=== PATIENT | female | born 1990 | race American Indian/Alaskan Native ===

== ENCOUNTER 2018-01-22 12:43 | Emergency (ER) | payer SELFPAY ==
[2018-01-22 14:43] LABS: Bilirubin,Urine NEG (Negative); Blood,Urine NEG (Negative); Color,Urine Yellow (Yellow); Mucus,Urine 3+ /HPF
[2018-01-22 14:44] LABS: HCG Qualitative,Urine Negative (Negative)
--- NOTE | 2018-01-22 17:32 | Emergency Department Report ---
ED Female HPI - General Chief complaint: Urogenital-Female Stated complaint: DISCHARGE Time Seen by Provider: 01/22/18 15:52 Source: patient Mode of arrival: Ambulatory Limitations: No Limitations - History of Present Illness Initial comments: 27-year-old female with no significant past medical history presents to the hospital complaining of white vaginal discharge with odor times one day. No pain reported. Patient denies fever or dysuria. Patient is sexually active with one partner and does not use condoms. Patient has had bacterial vaginitis in the past and concerned about repeat infection - Related Data Previous Rx's Medication Instructions Recorded Last Taken Type metroNIDAZOLE [Flagyl] 500 mg PO Q12HR #14 tab 01/22/18 Unknown Rx Allergies Allergy/AdvReac Type Severity Reaction Status Date / Time No Known Allergies Allergy Unverified 01/22/18 13:36 ED Review of Systems ROS: Stated complaint: DISCHARGE Other details as noted in HPI Comment: All other systems reviewed and negative ED Past Medical Hx - Past Medical History Previous Medical History?: No - Surgical History Past Surgical History?: No - Social History Smoking Status: Never Smoker Substance Use Type: None - Medications Home Medications: Home Medications Medication Instructions Recorded Confirmed Last Taken Type metroNIDAZOLE [Flagyl] 500 mg PO Q12HR #14 tab 01/22/18 Unknown Rx ED Physical Exam - General Limitations: No Limitations - Other Other exam information: General: No limitations, alert no acute distress Head exam: Atraumatic, normocephalic Eyes exam: Normal appearance ENT: Moist mucous membrane, normal oropharynx Neck exam: Normal inspection, full range of motion, no meningismus nontender Respiratory exam: Clear to auscultation bilateral, no wheezes, rales, crackles Cardiovascular: Normal rate and rhythm, normal heart sounds Abdomen: Soft, nondistended, and nontender, with normal bowel sounds, no rebound, or guarding : Mild white vaginal odor, no CMT or adnexal tenderness. Extremity: Full range of motion normal inspection no deformity Back: Normal Inspection, full range of motion, no tenderness Neurologic: Alert, oriented x3, cranial nerves intact, no motor or sensory deficit Psychiatric: normal affect, normal mood Skin: Warm, dry, intact ED Course Vital Signs 01/22/18 13:32 Temperature 98.7 F Pulse Rate 74 Respiratory 16 Rate Blood Pressure 115/74 O2 Sat by Pulse 98 Oximetry ED Medical Decision Making - Lab Data Lab Results 01/22/18 Range/Units 14:30 Urine Color Yellow (Yellow) Urine Turbidity Clear (Clear) Urine pH 5.0 (5.0-7.0) Ur Specific [place] 1.032 H (1.003-1.030) Urine Protein 30 mg/dl (Negative) mg/dL Urine Glucose (UA) Neg (Negative) mg/dL Urine Ketones 20 (Negative) mg/dL Urine Blood Neg (Negative) Urine Nitrite Neg (Negative) Urine Bilirubin Neg (Negative) Urine Urobilinogen 2.0 (<2.0) mg/dL Ur Leukocyte Esterase Tr (Negative) Urine WBC (Auto) 3.0 (0.0-6.0) /HPF Urine RBC (Auto) 3.0 (0.0-6.0) /HPF U Epithel Cells (Auto) 14.0 H (0-13.0) /HPF Urine Mucus 3+ /HPF Urine HCG, Qual Negative (Negative) - Medical Decision Making Vaginitis WEt prep negative exception of a few PMNs does not point to any specific infection GC and chlamydia pinning without abdominal tenderness or clinical signs of PID Patient offers empirically treatment since she is symptomatic although wet prep is negative. Gonorrhea and chlamydia pending. Outpatient JAMMER OPERATOR follow-up will be recommended - Differential Diagnosis vaginitis, cervicitis, UTI Critical Care Time: No Critical care attestation.: If time is entered above; I have spent that time in minutes in the direct care of this critically ill patient, excluding procedure time. ED Disposition Clinical Impression: Vaginitis Disposition: -01 TO HOME OR SELFCARE Is pt being admited?: No Does the pt Need Aspirin: No Condition: Stable Instructions: Vaginitis (ED) Additional Instructions: Take the medication as prescribed. Return is symptoms worsen. Follow-up with the JAMMER OPERATOR for further evaluation. Your gonorrhea and chlamydia tests are pending and take approximately 3-4 days result. You may obtain results in medical records with a photo ID. You may also obtain results through the follow-up doctor office via medical record request. Prescriptions: metroNIDAZOLE [Flagyl] 500 mg PO Q12HR #14 tab Referrals: FLAKITA CLIFFORD MD [Staff Physician] - 7-10 days Time of Disposition: 17:34
[2018-01-22 17:48] VITALS: BP 118/68
== END 2018-01-22 17:45 | disposition home or self-care (01) ==
LOC: ED 12:43
DX: N76.0 Acute vaginitis (principal)
CPT/HCPCS: 81001; 81025; 87210; 87591

== ENCOUNTER 2018-11-15 13:49 | Emergency (ER) | payer SELFPAY ==
[2018-11-15 14:01] VITALS: BP 110/67
--- NOTE | 2018-11-15 14:04 | Emergency Department Report ---
Chief Complaint: Urogenital-Female Stated Complaint: VAGINAL ISSUES Time Seen by Provider: 11/15/18 13:59 - HPI History of Present Illness: This is a 28 y.o. female that presents with grayish-white vaginal discharge and pelvic pain x 3 days. LMP - Exam Vital Signs: Vital Signs 11/15/18 13:59 Temperature 98.1 F Pulse Rate 101 H Respiratory 18 Rate Blood Pressure 110/67 O2 Sat by Pulse 97 Oximetry MSE screening note: Focused history and physical exam performed. Due to findings the following was ordered: Labs, pelvic exam and wet prep ED Disposition for MSE Condition: Stable
[2018-11-15 15:03] LABS: Bacteria,Urine 4+ /HPF (Negative); Bilirubin,Urine NEG (Negative); Blood,Urine NEG (Negative); Color,Urine Yellow (Yellow); Mucus,Urine 2+ /HPF; Protein,Urine <15 mg/dL mg/dL (Negative); Urobilinogen,Urine < 2.0 mg/dL (<2.0)
[2018-11-15 15:05] LABS: HCG Qualitative,Urine Negative (Negative)
--- NOTE | 2018-11-15 16:29 | Emergency Department Report ---
ED Female HPI - General Chief complaint: Urogenital-Female Stated complaint: VAGINAL ISSUES Time Seen by Provider: 11/15/18 13:59 Source: patient Mode of arrival: Ambulatory Limitations: No Limitations - History of Present Illness Initial comments: This is a 28-year-old female who presents to ED with recurrent bacterial vaginosis. Patient states she's been intermittently getting this symptoms since January. Patient states that this is a cause of her current control pills. Patient states she has no appointment with the senior accounting manager to change her medication. She denies irregular vaginal bleeding, dysuria, vaginal itching or odor. Patient states she is not currently sexually active since she is not worried about STD - Related Data Previous Rx's Medication Instructions Recorded Last Taken Type metroNIDAZOLE [Flagyl] 500 mg PO Q12HR #14 tab 01/22/18 Unknown Rx Clindamycin [Clindamycin CAP] 300 mg PO Q8H #21 cap 11/15/18 Unknown Rx Allergies Allergy/AdvReac Type Severity Reaction Status Date / Time No Known Allergies Allergy Unverified 01/22/18 13:36 ED Review of Systems ROS: Stated complaint: VAGINAL ISSUES Other details as noted in HPI Comment: All other systems reviewed and negative ED Past Medical Hx - Past Medical History Previous Medical History?: No - Surgical History Past Surgical History?: No - Social History Smoking Status: Never Smoker Substance Use Type: None - Medications Home Medications: Home Medications Medication Instructions Recorded Confirmed Last Taken Type metroNIDAZOLE [Flagyl] 500 mg PO Q12HR #14 tab 01/22/18 Unknown Rx Clindamycin [Clindamycin CAP] 300 mg PO Q8H #21 cap 11/15/18 Unknown Rx ED Physical Exam - General Limitations: No Limitations General appearance: alert, in no apparent distress - Head Head exam: Present: atraumatic, normocephalic - Eye Eye exam: Present: normal appearance - ENT ENT exam: Present: mucous membranes moist - Neck Neck exam: Present: normal inspection - Respiratory Respiratory exam: Present: normal lung sounds bilaterally. Absent: respiratory distress - Cardiovascular Cardiovascular Exam: Present: regular rate, normal rhythm. Absent: systolic murmur, diastolic murmur, rubs, gallop - GI/Abdominal GI/Abdominal exam: Present: soft, normal bowel sounds. Absent: distended, tenderness, guarding, rebound - External exam: Present: normal external exam - Extremities Exam Extremities exam: Present: normal inspection - Back Exam Back exam: Present: normal inspection - Neurological Exam Neurological exam: Present: alert, oriented X3 - Psychiatric Psychiatric exam: Present: normal affect, normal mood - Skin Skin exam: Present: warm, dry, intact, normal color. Absent: rash ED Course Vital Signs 11/15/18 13:59 Temperature 98.1 F Pulse Rate 101 H Respiratory 18 Rate Blood Pressure 110/67 O2 Sat by Pulse 97 Oximetry ED Medical Decision Making - Medical Decision Making Patient is a 28-year-old female with recurrent bacterial vaginosis. Patient will be treated with clindamycin Discussed follow-up with the DEWATERING FILTERING SUPERVISOR doctor. Referrals given. She is in no acute distress at this time and states she will follow up with her GENERAL HOUSE WORKER Critical care attestation.: If time is entered above; I have spent that time in minutes in the direct care of this critically ill patient, excluding procedure time. ED Disposition Clinical Impression: Bacterial vaginosis Disposition: - TO HOME OR SELFCARE Is pt being admited?: No Does the pt Need Aspirin: No Condition: Stable Instructions: Bacterial Vaginosis (ED) Additional Instructions: Make sure to follow up with the primary care physician as discussed. Take all your medications as you've been prescribed. If you have any worsening symptoms or develop new symptoms please return to ED immediately. Prescriptions: Clindamycin [Clindamycin CAP] 300 mg PO Q8H #21 cap Referrals: AUSTIN KOO MD [Primary Care Provider] - 3-5 Days Forms: STI Treatment and Prevention Time of Disposition: 16:29
== END 2018-11-15 16:45 | disposition home or self-care (01) ==
LOC: ED 13:49
DX: N76.0 Acute vaginitis (principal); B96.89 Other specified bacterial agents as the cause of diseases classified elsewhere
CPT/HCPCS: 81001; 81025; 99283